=== PATIENT | male | born 1980 | race Caucasian/White ===

== ENCOUNTER → 2023-06-16 | Outpatient (CLI) | payer OTHER | END | disposition home or self-care (01) | LOC: US 08:49 | PROVIDERS: ATTEND Family Medicine | DX: I25.10 Atherosclerotic heart disease of native coronary artery without angina pectoris (principal); I73.9 Peripheral vascular disease, unspecified; G62.9 Polyneuropathy, unspecified ==

== ENCOUNTER 2023-07-06 14:39 | Emergency (ER) | payer OTHER ==
[~2023-07-06] VITALS: Wt 152.0 kg
[2023-07-06 15:07] LABS: BASO % 0.3 % (0.0-1.0); LYMPH # 1.5 10*3/uL (1.3-4.4); LYMPH % 16.4 % (27.0-41.0); MEAN CELL VOLUME 82.3 fl (80.0-94.0); MEAN CORPUSCULAR HGB 27.9 pg (27.0-31.0); MEAN CORPUSCULAR HGB CONC 33.9 g/dl (33.0-37.0); MEAN PLATELET VOLUME 9.4 fl (9.6-12.3); MONO # 0.6 10*3/uL (0.1-1.0); MONO % 6.1 % (3.0-9.0); NEUT # 7.2 10*3/uL (2.3-7.9); NEUT % 76.9 % (47.0-73.0); PLATELET COUNT AUTOMATED 243 10*3/uL (130-400); RED CELL DISTRI WIDTH 13.1 % (0-14.5); WHITE BLOOD COUNT 9.3 10*3/uL (4.8-10.8)
[2023-07-06 15:38] LABS: ALKALINE PHOSPHATASE 69 U/L (46-116); BUN 21 mg/dl (9-23); CHLORIDE 108 mmol/L (98-107); CPK 185 U/L (34-171); SGPT/ALT 31 U/L (10-49)
[2023-07-06 16:01] LABS: ETHYL ALCOHOL < 3.0 mg/dl (<3)
[2023-07-06 17:38] LABS: BILIRUBIN Negative (Negative); BLOOD Negative (Negative); CLARITY Clear (Clear); COLOR Yellow (Yellow); GLUCOSE 3+ (Negative); KETONE 1+ (Negative); LEUKO ESTERASE Negative (Negative); NITRITE Negative (Negative); PH 5.5 (4.5-8.0); SPECIFIC GRAVITY >= 1.030 (1.001-1.030); UROBILINOGEN 0.2 E.U./dl (0.0-1.0)
[2023-07-06 17:44] LABS: URINE AMPHETAMINES Negative (1000ng/ml); URINE BARBITURATES Negative (200ng/ml); URINE BENZODIAZEPINES Negative (200ng/ml); URINE CANNABINOIDS (THC) Positive (50ng/ml); URINE COCAINE Negative (300ng/ml); URINE METHADONE Negative (300ng/ml); URINE OPIATES Negative (300ng/ml); URINE PHENCYCLIDINE Negative (25ng/ml)
[2023-07-06 17:47] LABS: RBC 0-2 rbc/hpf (0-2); WBC 0-2 wbc/hpf (0-5)
[2023-07-06 17:48] LABS: BACTERIA TRACE; EPITHELIAL CELLS 0-2
== END 2023-07-07 02:03 ==
LOC: ED 14:39
PROVIDERS: Nurse Practitioner Family
DX: F43.21 Adjustment disorder with depressed mood (principal)

== ENCOUNTER → 2023-11-30 | Outpatient (CLI) | payer OTHER ==
[2023-11-30 09:54] LABS: BASO % 0.3 % (0.0-1.0); EOS % 0.3 % (1.0-4.0); HEMATOCRIT 49.8 % (42.0-52.0); LYMPH # 1.6 10*3/uL (1.3-4.4); LYMPH % 26.5 % (27.0-41.0); MEAN CELL VOLUME 87.1 fl (80.0-94.0); MEAN CORPUSCULAR HGB 28.8 pg (27.0-31.0); MEAN CORPUSCULAR HGB CONC 33.1 g/dl (33.0-37.0); MEAN PLATELET VOLUME 9.1 fl (9.6-12.3); MONO # 0.5 10*3/uL (0.1-1.0); MONO % 8.2 % (3.0-9.0); NEUT # 3.9 10*3/uL (2.3-7.9); NEUT % 64.5 % (47.0-73.0); PLATELET COUNT AUTOMATED 226 10*3/uL (130-400); RED BLOOD COUNT 5.72 10*6/uL (4.50-5.90); RED CELL DISTRI WIDTH 14.4 % (0-14.5); RETICULOCYTE % 1.57 % (0.50-2.50); WHITE BLOOD COUNT 6.1 10*3/uL (4.8-10.8)
[2023-11-30 10:10] LABS: BILIRUBIN Negative (Negative); BLOOD Negative (Negative); CLARITY Clear (Clear); COLOR Yellow (Yellow); GLUCOSE 3+ (Negative); KETONE Negative (Negative); LEUKO ESTERASE Negative (Negative); NITRITE Negative (Negative); PH 7.5 (4.5-8.0); SPECIFIC GRAVITY 1.025 (1.001-1.030); UROBILINOGEN 0.2 E.U./dl (0.0-1.0)
[2023-11-30 10:24] LABS: RBC 0-2 rbc/hpf (0-2); WBC 0-2 wbc/hpf (0-5)
[2023-11-30 10:33] LABS: ALKALINE PHOSPHATASE 60 U/L (46-116); BUN 19 mg/dl (9-23); CHLORIDE 108 mmol/L (98-107); CHOLESTEROL 150 mg/dL (<200); GAMMA GLUTAMYL TRANSPEPTIDASE 26 U/L (0-73); LDL CHOLESTEROL 85 mg/dL (9-159); POTASSIUM 4.3 mmol/L (3.4-5.1); SGPT/ALT 36 U/L (5-49); T3 UPTAKE 25.5 % (22.4-36.7); THYROXINE (T4) TOTAL 9.7 ug/dl (4.5-10.9); TOTAL PROTEIN 7.5 gm/dL (6.0-8.0); TRIGLYCERIDES 85 mg/dl (<150)
[2023-11-30 10:47] LABS: VITAMIN D, 25-HYDROXY 63.5 ng/mL (30-100)
== END | disposition home or self-care (01) ==
LOC: LAB 09:26
PROVIDERS: ATTEND Family Medicine
DX: E78.5 Hyperlipidemia, unspecified (principal); E55.9 Vitamin D deficiency, unspecified; R79.89 Other specified abnormal findings of blood chemistry; R74.8 Abnormal levels of other serum enzymes

== ENCOUNTER → 2024-10-07 | Outpatient (CLI) | payer OTHER ==
[2024-10-07 08:45] LABS: BASO % 0.3 % (0.0-1.0); EOS # 0.1 10*3/uL (0.0-0.4); HEMATOCRIT 48.2 % (42.0-52.0); MEAN CELL VOLUME 89.1 fl (80.0-94.0); MEAN CORPUSCULAR HGB 30.1 pg (27.0-31.0); MEAN CORPUSCULAR HGB CONC 33.8 g/dl (33.0-37.0); MEAN PLATELET VOLUME 9.4 fl (9.6-12.3); MONO # 0.6 10*3/uL (0.1-1.0); MONO % 9.2 % (3.0-9.0); NEUT # 3.7 10*3/uL (2.3-7.9); NEUT % 62.3 % (47.0-73.0); PLATELET COUNT AUTOMATED 212 10*3/uL (130-400); RED BLOOD COUNT 5.41 10*6/uL (4.50-5.90); RETICULOCYTE % 1.74 % (0.50-2.50)
[2024-10-07 09:27] LABS: ALKALINE PHOSPHATASE 68 U/L (46-116); BUN 24 mg/dl (9-23); CHLORIDE 107 mmol/L (98-107); CHOLESTEROL 181 mg/dL (<200); GAMMA GLUTAMYL TRANSPEPTIDASE 30 U/L (0-73); LDL CHOLESTEROL 106 mg/dL (9-159); POTASSIUM 4.2 mmol/L (3.4-5.1); SGPT/ALT 26 U/L (5-49); TOTAL PROTEIN 6.8 gm/dL (6.0-8.0); TRIGLYCERIDES 68 mg/dl (<150)
[2024-10-07 09:50] LABS: CLARITY Clear (Clear); COLOR Yellow (Yellow)
[2024-10-07 09:51] LABS: BILIRUBIN Negative (Negative); BLOOD Negative (Negative); GLUCOSE 3+ (Negative); KETONE Negative (Negative); SPECIFIC GRAVITY 1.015 (1.001-1.030); UROBILINOGEN 0.2 E.U./dl (0.0-1.0)
[2024-10-07 09:52] LABS: BACTERIA TRACE; LEUKO ESTERASE Negative (Negative); MUCOUS TRACE; NITRITE Negative (Negative); WBC 0-2 wbc/hpf (0-5)
[2024-10-07 10:02] LABS: VITAMIN D, 25-HYDROXY 38.3 ng/mL (30-100)
== END | disposition home or self-care (01) ==
LOC: LAB 08:21
PROVIDERS: ATTEND Family Medicine
DX: R79.89 Other specified abnormal findings of blood chemistry (principal); R53.83 Other fatigue; E78.5 Hyperlipidemia, unspecified; E11.9 Type 2 diabetes mellitus without complications